=== PATIENT | male | born 1970 | race American Indian/Alaskan Native ===

== ENCOUNTER 2017-09-16 14:02 | Inpatient (IN) | payer SELFPAY ==
[2017-09-16 15:05] LABS: BASO # 0.1 K/uL (0.0-0.2); EOS # 0.6 K/uL (0.0-0.7); EOS % 11.7 % (0.0-4.0); HEMOGLOBIN 11.2 g/dL (12.0-18.0); LYMPH # 1.1 K/uL (1.0-4.3); LYMPH % 21.8 % (20.0-40.0); MEAN CELL VOLUME 84.9 fL (80.0-94.0); MEAN CORPUSCULAR HEMOGLOBIN 27.5 pg (27.0-31.0); MEAN CORPUSCULAR HGB CONC 32.4 g/dL (33.0-37.0); MEAN PLATELET VOLUME 8.3 fL (7.2-11.7); MONO # 0.7 K/uL (0.0-0.8); MONO % 13.3 % (0.0-10.0); NEUT # 2.6 K/uL (1.8-7.0); NEUT % 52.2 % (50.0-75.0); RBC 4.08 Mil/uL (4.40-5.90); RED CELL DISTRIBUTION WIDTH 14.4 % (11.5-14.5); WHITE BLOOD COUNT 5.1 K/uL (4.8-10.8)
[2017-09-16 15:17] LABS: ALBUMIN 3.8 g/dL (3.5-5.0); ALT/SGPT 48 U/L (21-72); AST/SGOT 31 U/L (17-59); BLOOD UREA NITROGEN 14 mg/dL (9-20); GFR AFRICAN-AMERICAN > 60; GFR NON-AFRICAN AMERICAN > 60
--- NOTE | 2017-09-16 15:42 | C.PDOC ---
History Of Present Illness 47 year old male, with past medical history of schizophrenia, bipolar disorder, depression, presents to ED for evaluation of manic behavior for the past few days. Pt reports hearing voices that tell him to kill himself. Pt admits to being non compliant with his psych medications for the past few months. Pt admits to heroin and alcohol abuse. Patient is awake, alert, and appropriate, not in any distress. Denies any active physical complaints at this time. Time Seen by Provider: 09/16/17 14:41 Chief Complaint (Nursing): Psychiatric Evaluation History Per: Patient History/Exam Limitations: no limitations Onset/Duration Of Symptoms: Days Current Symptoms Are (Timing): Still Present Suicide/Self Injury Attempted (Context): None Modifying Factor(s): Alcohol Severity: None Pain Scale Rating Of: 0 Associated Symptoms: Suicidal Thoughts Involuntary Hold By: None Recent travel outside of the [place]: No Additional History Per: Patient Past Medical History Reviewed: Historical Data, Nursing Documentation, Vital Signs Vital Signs: Last Vital Signs Temp 97.8 F 09/16/17 16:31 Pulse 67 09/16/17 16:31 Resp 16 09/16/17 16:31 BP 127/83 09/16/17 16:31 Pulse Ox 98 09/16/17 16:31 - Medical History PMH: Bipolar Disorder, Depression, Schizophrenia Family History: States: Unknown Family Hx - Social History Hx Alcohol Use: No Hx Substance Use: Yes - Immunization History Hx Tetanus Toxoid Vaccination: No Hx Influenza Vaccination: Yes (2017) Hx Pneumococcal Vaccination: No Review Of Systems Except As Marked, All Systems Reviewed And Found Negative. Constitutional: Negative for: Fever, Chills Cardiovascular: Negative for: Chest Pain, Palpitations Respiratory: Negative for: Cough, Shortness of Breath Gastrointestinal: Negative for: Nausea, Vomiting, Abdominal Pain Neurological: Negative for: Headache, Dizziness Psych: Positive for: Suicidal ideation (hearing voices) Physical Exam - Physical Exam Appears: Non-toxic, No Acute Distress Skin: Normal Color, Warm, Dry, No Rash Head: Normacephalic Eye(s): bilateral: PERRL Oral Mucosa: Moist, No Drooling Neck: Supple Cardiovascular: Rhythm Regular, No Murmur Respiratory: No Accessory Muscle Use, No Rales, No Rhonchi, No Wheezing Extremity: Normal ROM, No Pedal Edema, No Deformity Neurological/Psych: Oriented x3, Normal Speech ED Course And Treatment - Laboratory Results Result Diagrams: 09/16/17 15:01 09/16/17 15:01 Lab Interpretation: Normal O2 Sat by Pulse Oximetry: 99 (RA) Pulse Ox Interpretation: Normal Progress Note: Blood work, UA was ordered and reviewed. Bllod work review and appears normal. At 16:00, Pt is medically cleared for PES evaluation. Pt remained stable during the ED evaluation, AAO#3, appropriate, not in any apparent distress. At 17:00, pt was seen by PES worker and case discussed with [id number] and admission arranged with Dx: Schizophrenia, hallucination, non-compalint with medication. Disposition - Disposition Disposition: HOSPITALIZED Disposition Time: 17:06 Condition: STABLE Forms: [facility] (Belizean) - Clinical Impression Clinical Impression: Schizophrenia - PA / DELI BAKERY CLERK / Resident Statement MD/DO has reviewed & agrees with the documentation as recorded. - Scribe Statement The provider has reviewed the documentation as recorded by the Scribe Robert Rios All medical record entries made by the Scribe were at my direction and personally dictated by me. I have reviewed the chart and agree that the record accurately reflects my personal performance of the history, physical exam, medical decision making, and the department course for this patient. I have also personally directed, reviewed, and agree with the discharge instructions and disposition.
[2017-09-16 16:17] LABS: SQUAMOUS EPITHIAL < 1 /hpf (0-5); URINE BILIRUBIN NEGATIVE (NEGATIVE); URINE BLOOD NEGATIVE (NEGATIVE); URINE CLARITY Clear (Clear); URINE COLOR Yellow (YELLOW); URINE GLUCOSE (UA) NORMAL (Normal); URINE LEUKOCYTE ESTERASE NEG Leu/uL (Negative); URINE NITRATE NEGATIVE (NEGATIVE); URINE PROTEIN 1+ mg/dL (NEGATIVE)
[2017-09-16 16:24] LABS: BARBITURATES, UR NEGATIVE (NEGATIVE); BENZODIAZEPINES, UR NEGATIVE (NEGATIVE); PHENCYCLIDINE, UR NEGATIVE (NEGATIVE)
[2017-09-16 16:26] LABS: OPIATES, UR POSITIVE (NEGATIVE)
[2017-09-16 17:18] VITALS: O2SAT 97
--- NOTE | 2017-09-16 18:16 | PCM.BM ---
<Bret Thorne - Last Filed: 09/16/17 18:13> Treatment Plan Problems - Problems identified on initial assessmt Schizophrenia Date Initiated: 09/16/17 Time Initiated: 17:45 Assessment reference: NA Status: Active Substance Abuse Date Initiated: 09/16/17 Time Initiated: 17:45 Assessment reference: NA Status: Active Treatment assets and liabiliti Patient Assests: cooperative, educated, self-reliant, ADL independent, physically healthy, good support system, negotiates basic needs, financial stabiity Patient Liabilities: substance abuse (Heroin), imparied memory, auditory impairment (Impaired Hearing Right ear, uses hearing aide), visual impairment ( Uses glasses, currently does not have them) - Milieu Protocol Maintain good personal hygiene: daily Encourage regular showers, every shift Remind patient to perform daily oral care, every shift Assist patient to perform ADL's Conduct patient checks and document Observation sheet: Q15 minutes (For Safety) Maintain personal safety: every shift Educate patient to report safety concerns to staff, every shift Monitor environment for contraband/sharps Medication safety: Monitor for expected outcome, potential side effects: every shift, Assess barriers to learning: every shift, Assess readiness for medication education: every shift <Jessica Bonner - Last Filed: 09/17/17 10:52> Family Contact Family involvement: Family/SO is involved Family contact: Patient declines to allow family contact at present - Goals for Treatment Patient goals for treatment: "I need a program." Discharge/Continuing Care - Education Needs Education Needs: Patient Medication, Patient Coping Skills, Patient Placement options, Patient Community resources - Discharge Discharge Criteria: Tolerates medication w/o severe side effects, Free of Suicidal thoughts, No longer exhibiting s/s of withdrawal, Reduction of target symptoms Discharge to:: Home - Treatment Team Participation Discussed with Family/SO: No Was Patient/Family/SO present at Treatment Team Meeting: Yes <Marilu Browne - Last Filed: 09/17/17 11:53> - Diagnosis (1) Schizophrenia Status: Acute Interventions: 09/17/17 11:52 * Assess/adjust medications daily and /or as needed * See patient on an individual basis 7x/week to assess status of hallucinations * Discuss risks, benefits, side effects and alternatives of medications * (2) Opioid use disorder, severe, dependence Status: Acute Interventions: 09/17/17 11:52 * Assess 7x/week regarding severity of withdrawal * Educate regarding risks, benefits, side effects and alternatives of medications * Use Motivational Interviewing for abstinence * Use CBT for relapse prevention * Medication management for withdrawal symptoms * Encourage medication assisted treatment *
[2017-09-16] MEDS ORDERED: Aluminum Hydroxide/Magnesium Hydroxide Susp (30 mL) PO PRN (23:20)
--- NOTE | 2017-09-17 13:12 | PCM.PSYCH ---
Initial Psychiatric Evaluation - Initial Psychiatric Evaluation Type of Admission: Voluntary Legal Status: Capacity Chief Complaint (in patient's own words): "I was hearing voices" History of Present Illness and Precipitating Events: The pt is seen, chart reviewed, case discussed with staff. Patient is a 47 year old AA male. He is single with no kids. He is currently living with his sister in [place]. He states he is on disability. He was admitted to [facility] for hearing voices that were telling him to hurt himself. The voices began one month ago. He currently states he does not have suicidal ideation or auditory hallucinations, but he is evasive. He denies paranoia, homicidal ideation, visual hallucinations. He has a 5 year history of heroin use. Patient states he uses 4-5 bags daily, snorts. The last time using was yesterday. He has never been in detox or rehab prior. Denies using cocaine, pills, alcohol,tobacco, or marijuana. He is currently on probation for the next two years for drugs. He served 5 years in [employer]. His health data analyst does not know he is here Psych History: "Bipolar Schizophrenic." Has been hospitalized for this condition at least 10 times in the past, incl. [facility]. Past aldo attempt. Family Psych Hx: Denies PMH: Denies Current Medications: Active Medications Generic Name Dose Route Start Last Admin Trade Name Freq PRN Reason Stop Dose Admin Al Hydrox/Mg Hydrox/Simethicone 30 ml 09/16/17 23:20 Maalox 30 Ml PO TID PRN Indigestion / Heartburn Clonidine HCl 0.1 mg 09/16/17 23:20 Catapres PO Q8 PRN COWS Score More or Equal to 5 Hydroxyzine HCl 50 mg 09/16/17 18:19 Atarax PO Q6H PRN Anxiety Ibuprofen 600 mg 09/16/17 18:19 09/17/17 05:51 Motrin Tab PO 600 mg Q6H PRN Administration Pain, moderate (4-7) Loperamide HCl 2 mg 09/16/17 23:20 Imodium PO Q8 PRN Diarrhea Methadone HCl 15 mg 09/18/17 10:00 Methadone PO 09/22/17 09:59 Q24H RYAN Taper Olanzapine 10 mg 09/16/17 22:00 09/16/17 21:51 Zyprexa PO 10 mg HS RYAN Administration Ondansetron HCl 4 mg 09/16/17 23:20 Zofran Tab PO Q8 PRN Nausea/Vomiting Pneumococcal Polyvalent Vaccine 0.5 ml 09/18/17 10:00 Pneumovax 23 Vaccine IM 09/18/17 10:01 .ONCE ONE Trazodone HCl 100 mg 09/16/17 18:19 Desyrel PO HS PRN Insomnia Past Psychiatric History - Past Psychiatric History Previous Treatment History: Inpatient Pertinent Medical Hx (Current Medical&Sleep Prob, Allergies): Allergies Allergy/AdvReac Type Severity Reaction Status Date / Time No Known Allergies Allergy Verified 09/16/17 14:27 No Known Home Med 09/16/17 Review of Systems - Review of Systems All systems: reviewed and no additional remarkable complaints except - Constitutional Constitutional: Weakness - Musculoskeletal Musculoskeletal: Muscle Cramps, Myalgias - Psychiatric Psychiatric: Abnormal Sleep Pattern, Auditory Hallucinations, Paranoia (mild). absent: Anxiety, Depression, Homicidal Ideation, Suicidal Ideation, Visual Hallucinations Mental Status Examination - Personal Presentation Personal Presentation: Looks stated age - Affect Affect: Constricted, Flat - Motor Activity Motor Activity: Calm - Reliability in Providing Information Reliability in Providing Information: Good - Speech Speech: Organized (slowed) - Mood Mood: Neutral - Formal Thought Process Formal Thought Process: Hallucinations - Hallucinations/Delusions Hallucinations: Auditory - Cognitive Functions Orientation: Person, Place, Situation, Time Sensorium: Lethargic Attention/Concentration: Attentive Abstract Thinking: [place] Estimate of Intelligence: Below average Judgement: Intact, as evidence by: Insight regarding need for hospitalization Memory: Recent intact, as evidence by: Ability to recall events of the day, Remote intact, as evidenced by: Abilit to recall sig. life events - Risk Risk: Withdrawal, Diminished functioning - Strength & Assets Inventory Strength & Assets Inventory: Cooperative DSM 5 DX - DSM 5 DSM 5 Diagnosis: Schizoaffective Disorder- Bipolar type Opioid use d/o Opioid withdrawal - Recommended/Plan of Treatment Treatment Recommendations and Plan of Treatment: Patient started on Olanzapine 10mg PO Methadone detox As needed medications Attend groups and activities Individual therapy Psychoeducation and support [place] for abstinence CBT for relapse prevention Encourage compliance with meds and after care Refer to outpatient program, rehab, or IOP Teach healthy lifestyle methods, i.e. diet, exercise, meditation 36mins Projected ELOS: 7 days Prognosis: good w tx - Smoking Cessation Smoking Cessation Initiated: Yes
[2017-09-18 06:31] VITALS: RESP 18; TEMP 98
[2017-09-18] MEDS ORDERED: Influenza Vaccine 60 mcg/0.5 mL SYR (4YR UP) IM ONE (10:00)
[2017-09-18] MEDS ORDERED: Pneumococcal 23-Valent Vaccine IM ONE (10:00)
--- NOTE | 2017-09-18 14:13 | PCM.PYCHPN ---
Psychiatric Progress Note - Psychiatric Progress Note Patient seen today, length of contact: 16 mins Patient Chief Complaint: "I am having less withdrawal symptoms today" Problems Identified/Issues Discussed: The pt is seen, chart reviewed, case discussed with staff. Patient states he is experiencing less withdrawal symptoms than yesterday. He is still withdrawn and quiet. The pt is compliant with medications and reports no side-effects. Symptoms are improving but needs more time to stabilize. After care discussed, support and psychoeducation given. Medication Change: Yes Medical Record Reviewed: Yes Mental Status Examination - Cognitive Function Orientation: Person, Place, Situation, Time Memory: Intact Attention: Poor Concentration: Poor Association: Loose Fund of Knowledge: Poor - Mood Mood: Neutral - Affect Affect: Constricted, Flat - Speech Speech: Soft - Formal Thought Process Formal Thought Process: Hallucinations - Suicidal Ideation Suicidal Ideation: No - Homicidal Ideation Homicidal Ideation: No Goal/Treatment Plan - Goal/Treatment Plan Need for Continued Stay: Discharge may exacerbated symptoms, Severe functional impairment Progress Toward Problem(s) and Goals/Treatment Plan: Patient started on Olanzapine 10mg PO Methadone detox As needed medications Attend groups and activities Individual therapy Psychoeducation and support [place] for abstinence CBT for relapse prevention Encourage compliance with meds and after care Refer to outpatient program, rehab, or IOP Teach healthy lifestyle methods, i.e. diet, exercise, meditation
[2017-09-19 06:19] VITALS: BP 112/73; PULSE 76
--- NOTE | 2017-09-19 14:20 | PCM.PYCHPN ---
Psychiatric Progress Note - Psychiatric Progress Note Patient seen today, length of contact: 16 mins Patient Chief Complaint: "I am feeling much better" Problems Identified/Issues Discussed: The pt is seen, chart reviewed, case discussed with staff. Patient is more social then yesterday. He states he is feeling better and only has mild withdrawal symptoms. The pt is compliant with medications and reports no side-effects. Symptoms are improving but needs more time to stabilize. After care discussed, support and psychoeducation given. Medication Change: Yes Medical Record Reviewed: Yes Mental Status Examination - Cognitive Function Orientation: Person, Place, Situation, Time Memory: Intact Attention: WNL Concentration: WNL Association: [facility] Fund of Knowledge: WNL - Mood Mood: Neutral - Affect Affect: Constricted, Flat - Speech Speech: Soft - Formal Thought Process Formal Thought Process: Hallucinations - Suicidal Ideation Suicidal Ideation: No - Homicidal Ideation Homicidal Ideation: No Goal/Treatment Plan - Goal/Treatment Plan Need for Continued Stay: Discharge may exacerbated symptoms, Severe functional impairment Progress Toward Problem(s) and Goals/Treatment Plan: Patient started on Olanzapine 15mg PO Methadone detox As needed medications Attend groups and activities Individual therapy Psychoeducation and support [place] for abstinence CBT for relapse prevention Encourage compliance with meds and after care Refer to outpatient program, rehab, or IOP Teach healthy lifestyle methods, i.e. diet, exercise, meditation
--- NOTE | 2017-09-19 14:42 | PCM.PYCHDC ---
Mental Status Examination - Mental Status Examination Orientation: Person, Place, Situation, Time Discharge Summary - Discharge Note Consultations:: List each consultation separately and include: 1. Reason for request. 2. Findings. 3. Follow-up Summary of Hospital Course include:: 1. Description of specific treatment plan utilized for patients during their course of treatmen. 2. Summarize the time- course for resolution of acute symptoms and/or regressed behaviors. 3. Describe issues identified and worked on during hospitalization. 4. Describe medication utilized. 5. Describe medical problems identified and treated. 6. Reassessment of suicide risk Summary of Hospital Course: The pt is seen, chart reviewed, case discussed with staff. Patient is a 47 year old AA male. He is single with no kids. He is currently living with his sister in [place]. He states he is on disability. He was admitted to [facility] for hearing voices that were telling him to hurt himself. The voices began one month ago. He currently states he does not have suicidal ideation or auditory hallucinations, but he is evasive. He denies paranoia, homicidal ideation, visual hallucinations. He has a 5 year history of heroin use. Patient states he uses 4-5 bags daily, snorts. The last time using was yesterday. He has never been in detox or rehab prior. Denies using cocaine, pills, alcohol,tobacco, or marijuana. He is currently on probation for the next two years for drugs. He served 5 years in [employer]. His filter changing technician does not know he is here Psych History: "Bipolar Schizophrenic." Has been hospitalized for this condition at least 10 times in the past, incl. [facility]. Past aldo attempt. Family Psych Hx: Denies PMH: Denies - Final Diagnosis (DSM 5) Condition upon Discharge: STABLE Disposition: AGAINST MEDICAL ADVICE - Smoking Cessation Smoking Cessation Medication prescribed: No - Antipsychotic Medications Pt discharged on 2 or more routine antipsychotic medications: No
== END 2017-09-19 14:59 | disposition left against medical advice (07) | DRG 885 ==
LOC: C.ER 14:02 → C.5E 17:06
PROVIDERS: ADMIT Psychiatry & Neurology Psychiatry; ATTEND Psychiatry & Neurology Psychiatry
DX: F25.0 Schizoaffective disorder, bipolar type (principal); F11.90 Opioid use, unspecified, uncomplicated